=== PATIENT | female | born 1955 | race Caucasian/White ===

== ENCOUNTER → 2016-04-28 | Outpatient (CLI) | payer BC ==
[~2016-04-28] MED LIST: CALC500T72 PO; CALCIUM + D600 M1 PO; CHOL100027 PO; GLUCOSAMINE/CHOND PO; KRIL1CAP7 PO; LEVOCETIRIZINE PO; LISI5TAB3 PO; MULT-506 PO; OXYC-292 PO; XRL10 PO
--- NOTE | 2016-04-29 16:37 | MAMMOGRAPHY REPORT ---
BILATERAL DIGITAL SCREENING MAMMOGRAM TOMOSYNTHESIS WITH CAD: 04/28/2016 CLINICAL HISTORY: Routine screening. Patient has no complaints. TECHNIQUE: Breast tomosynthesis in addition to standard 2D mammography was performed. Current study was also evaluated with a Computer Aided Detection (CAD) system. COMPARISON: Comparison is made to exams dated: 04/27/2015 mammogram, 04/19/2013 mammogram, 11/03/2014 m ammogram, 04/23/2014 mammogram, 04/18/2012 mammogram, and 04/13/2011 mammogram - [facility] enter. BREAST COMPOSITION: There are scattered areas of fibroglandular density in both breasts. FINDINGS: There is a small cluster of calcifications seen within the left upper outer quadrant, for which spot magnification views are recommended for further evaluation. The remainder of both breasts are stable compared to prior exams, without suspicious masses, calcifi cations, or areas of architectural distortion noted. IMPRESSION: ACR BI-RADS CATEGORY 0: INCOMPLETE EVALUATION: NEED ADDITIONAL IMAGING EVALUATION Left upper outer quadrant calcifications, for which additional imaging evaluation is recommended. T he patient will be called to schedule an appointment. Approximately 10% of breast cancers are not detected with mammography. A negative mammographic repor t should not delay biopsy if a clinically suggestive mass is present. Joselyn Carcamo M.D. ah/:04/29/2016 16:07:15 Steersman: Nestor Trevizo RT(R)(M), [facility] letter sent: Addl Imaging 0 BI-RADS Code: ACR BI-RADS Category 0: Incomplete Evaluation: Need Additional Imaging Evaluation
== END | disposition home or self-care (01) ==
LOC: C.MAMM 08:27
PROVIDERS: ATTEND Obstetrics & Gynecology
DX: Z12.31 Encounter for screening mammogram for malignant neoplasm of breast (principal); R92.0 Mammographic microcalcification found on diagnostic imaging of breast

== ENCOUNTER → 2016-05-03 | Outpatient (CLI) | payer BC ==
--- NOTE | 2016-05-03 12:48 | MAMMOGRAPHY REPORT ---
UNILATERAL LEFT DIGITAL DIAGNOSTIC MAMMOGRAM: 05/03/2016 CLINICAL HISTORY: 60-year-old woman called back from screening mammography for a small grouping of p unctate microcalcifications in the upper outer quadrant of the left breast. TECHNIQUE: Spot magnification left CC and ML views were obtained. COMPARISON: Comparison is made to exams dated: 04/27/2015 mammogram, 11/03/2014 ultrasound, 05/01/2014 mammogram, 04/18/2012 mammogram, 04/13/2011 mammogram, and 04/08/2010 mammogram - [facility]. BREAST COMPOSITION: There are scattered areas of fibroglandular density in the left breast. FINDINGS: There is a new small 2 mm grouping of punctate microcalcifications in the upper outer mid dle one third of the left breast. This is indeterminate, warranting further evaluation with a stere otactic guided biopsy. No obvious associated mass or architectural distortion. No other suspicious mass, architectural distortion or cluster of microcalcifications is seen. IMPRESSION: ACR BI-RADS CATEGORY 4B: INTERMEDIATE SUSPICION FOR MALIGNANCY The new small 2 mm grouping of punctate microcalcifications in the left upper outer quadrant is inde terminate, warranting further evaluation with a stereotactic guided biopsy. These results and recommendations were discussed with the patient at the time of the exam. She tent atively scheduled the biopsy prior to leaving our department. Approximately 10% of breast cancers are not detected with mammography. A negative mammographic repor t should not delay biopsy if a clinically suggestive mass is present. Jen Aparicio M.D. ay/:05/03/2016 10:55:17 Clinical Rehab Specialist: Eulalia Feldman, [facility] letter sent: Abnormal 4/5 BI-RADS Code: ACR BI-RADS Category 4B: Intermediate Suspicion For Malignancy
== END | disposition home or self-care (01) ==
LOC: C.MAMM 10:05
PROVIDERS: ATTEND Obstetrics & Gynecology
DX: R92.0 Mammographic microcalcification found on diagnostic imaging of breast (principal)

== ENCOUNTER → 2016-05-09 | Outpatient (CLI) | payer BC ==
--- NOTE | 2016-05-09 13:18 | Discharge Instructions ---
Discharge Instructions Procedure Procedure Date: May 09, 2016. Reason for visit: Left Calcifications. Discharge Discharge Date: May 09, 2016. Discharge Diagnosis: post left breast stereotactic guided biopsy Medications Restart Stopped Medication(s): May restart Aspirin tonight as long as no bleeding through bandages Instructions Activity Recommendations: Additional Limitations (see below) Return to School/Work: no limitations Recommended Home Diet: No Limitations Provider Instructions: ACTIVITY RECOMMENDATIONS: * No lifting, pushing, pulling or exercising the affected side for three days. RETURN TO SCHOOL/WORK: * You may return to work/school after the procedure, but do not perform any strenuous activities for 24 to 48 hours. MEDICATIONS: * Tylenol (two 325 mg) every four to six hours if needed for mild pain (if not allergic to Tylenol). DIET: * Resume previous diet. SPECIAL CARE INSTRUCTIONS: * Keep biopsy site dry for 24 hours. May shower after 24 hours, but do not soak (bathe) incision. * May remove Tegaderm (plastic patch) tomorrow AFTER showering. * Leave the steri-strips on for one week. Allow the steri-strips to fall off by themselves. If not off after one week, you may remove them. You may place a Bandaid crosswise over the strips, if desired. * Apply ice 10 minutes on and 10 minutes off as needed. * Wear a bra at bedtime to sleep more comfortably for 2-3 days. * Your referring physician should have the results after approximately 5 to 7 business days. * Call for unusual bleeding, fever, drainage, etc or if you have any questions call [phone] during normal business hours or after hours call Dr Aparicio, . FOLLOW UP VISIT: Follow-up with Referring Physician as scheduled. Allergies Coded Allergies: Codeine (Verified Allergy, Intermediate, PT TOOK WHEN IN COLLEGE--HANDS SWELLED, 07/15/09) Celecoxib (Unverified Allergy, Unknown, HIVES, 03/26/12) Sulfa Drugs (Unverified Allergy, Unknown, HIVES, 03/26/12) Rachel Robbins Recommendations: Call your doctor if: * Temperature above 101 degrees * Pain not relieved by pain medicine ordered * There is increased drainage or redness from any incision * You have any unanswered questions or concerns. Your Doctors Instructions noted above were prepared by provider Jen Aparicio. Patient Signature Section: Patient Instructions Signature Page Ryder Boothe Patient (or Guardian) Signature/Date: I have read and understand the instructions given to me by my caregivers. Caregiver/RN/Doctor Signature/Date: The above-named patient and/or guardian has received patient instructions on this date. + Original Patient Signature Page (only) stays with chart. Please make copy for patient.
--- NOTE | 2016-05-09 14:28 | MAMMOGRAPHY REPORT ---
STEREOTACTIC GUIDED BIOPSY LEFT BREAST: 05/09/2016 CLINICAL HISTORY: Indeterminate clustered microcalcifications in the lateral left breast. Patient p resents for stereotactic guided biopsy. COMPARISON: Comparison is made to exams dated: 05/03/2016 mammogram, 04/28/2016 mammogram, 04/27/2015 mammogram, and 04/23/2014 mammogram - [facility]. PATIENT CONSENT: After explaining the risks, benefits and alternatives of the procedure to the patie nt, informed consent was obtained both verbally and in writing. Specific risks include: Bleeding, i nfection, puncture of adjacent structure, nontarget biopsy, sampling error, metal allergy and medica tion reaction. PROCEDURE DESCRIPTION: A time-out was performed and the left breast was confirmed as the site of bio psy. The patient was placed prone on the stereotactic biopsy table and the breast was placed in late ralmedial compression. A tape deck installer image was obtained that demonstrated the clustered microcalcificatio ns in question. They are amenable to sterotactic biopsy. Then +15 and -15 stereo pair images were obtained. The calcifications were targeted utilizing the coordinates obtained by the computer. The skin was prepped with Betadine. 1% Lidocaine with and without epinipherine was administered as loca l anesthesia. A small skin incision was made. Through the incision, the needle was inserted to the depth determined by the computer. Through the incision, 8 samples were obtained using a [employer] 9-gauge vacuum-assisted biopsy device. The specimen radiograph demonstrated no microcalcifications, therefore, 6 additional core biopsy samples were obtained in the same area. The second specimen ra diograph demonstrated nearly the entire cluster of calcifications. Then a metallic marker was place d at the biopsy site. There was no immediate complication. Hemostasis was achieved after several min utes of manual compression. The samples were sent to pathology in 2 appropriately labeled container s, as the sample containing nearly the entire cluster of calcifications was out from the r emainder of the tissue and placed in a separate container labeled "with calcifications". Postprocedure CC and ML views of the left breast demonstrate a new dumbbell-shaped metallic biopsy m arker and no significant hematoma in the lateral left breast, at the site of the biopsied calcificat ions in question. IMPRESSION: STEREOTACTIC GUIDED BIOPSY Status post stereotactic guided biopsy of a new cluster of round and punctate microcalcifications in the lateral left breast, with biopsy marker placed at the site. The patient will receive notification of the biopsy results from her referring physician. Jen Aparicio M.D. ay/:05/09/2016 13:33:26 Attending Technologist: Susi Miramontes RT(R)(M), [facility] Sugar Sampler: Coral Avendaño RT(R)(M), [facility]
--- NOTE | 2016-05-09 14:28 | MAMMOGRAPHY REPORT ---
UNILATERAL LEFT DIGITAL DIAGNOSTIC MAMMOGRAM: 05/09/2016 CLINICAL HISTORY: Status post stereotactic biopsy of an indeterminate cluster of round and punctate microcalcifications in the left lateral breast. Please refer to the report from left breast stereotactic biopsy performed at the same time for full detail. IMPRESSION: POST PROCEDURE IMAGING FOR MARKER PLACEMENT Please refer to the report from left breast stereotactic biopsy performed at the same time for full detail. Approximately 10% of breast cancers are not detected with mammography. A negative mammographic repor t should not delay biopsy if a clinically suggestive mass is present. Jen Aparicio M.D. ay/:05/09/2016 13:13:42 Attending Technologist: Susi Miramontes RT(R)(M), [facility] Piping Design Specialist: Coral Avendaño RT(R)(M), [facility] BI-RADS Code: Post Procedure Imaging For Marker Placement
== END | disposition home or self-care (01) ==
LOC: C.MAMM 12:26
PROVIDERS: ATTEND Obstetrics & Gynecology
DX: R92.1 Mammographic calcification found on diagnostic imaging of breast (principal)

== ENCOUNTER → 2016-05-09 | Outpatient (CLI) | payer BC | END | disposition home or self-care (01) | LOC: C.PAPS 14:24 | PROVIDERS: ATTEND Obstetrics & Gynecology | DX: Z01.411 Encounter for gynecological examination (general) (routine) with abnormal findings (principal); N95.2 Postmenopausal atrophic vaginitis ==

== ENCOUNTER → 2017-05-03 | Outpatient (CLI) | payer OTHER ==
--- NOTE | 2017-05-03 14:14 | MAMMOGRAPHY REPORT ---
BILATERAL DIGITAL SCREENING MAMMOGRAM TOMOSYNTHESIS WITH CAD: 05/03/2017 CLINICAL HISTORY: Routine screening. Patient has no complaints. TECHNIQUE: Breast tomosynthesis in addition to standard 2D mammography was performed. Current study was also evaluated with a Computer Aided Detection (CAD) system. COMPARISON: Comparison is made to exams dated: 05/09/2016 mammogram, 05/09/2016 stereotactic biopsy, mammogram, 04/28/2016 mammogram, 04/27/2015 mammogram, and 11/03/2014 mammogram - [facility]. BREAST COMPOSITION: There are scattered areas of fibroglandular density in both breasts. FINDINGS: No suspicious masses, calcifications, or areas of architectural distortion are noted in ei ther breast. There has been no significant interval change compared to prior exams. A biopsy clip is again noted within the left upper outer quadrant. A few scattered bilateral benign-appearing calcif ications are not significantly changed. IMPRESSION: ACR BI-RADS CATEGORY 2: BENIGN There is no mammographic evidence of malignancy. A 1 year screening mammogram is recommended. The pa tient will receive written notification of the results. Approximately 10% of breast cancers are not detected with mammography. A negative mammographic report should not delay biopsy if a clinically suggestive mass is present. Joselyn Carcamo M.D. ah/:05/03/2017 09:41:52 Shift Stacker: Eulalia DWYER(Chai)(M), [facility] letter sent: Normal 1/2 BI-RADS Code: ACR BI-RADS Category 2: Benign
== END | disposition home or self-care (01) ==
LOC: C.MAMM 08:27
PROVIDERS: ATTEND Obstetrics & Gynecology
DX: Z12.31 Encounter for screening mammogram for malignant neoplasm of breast (principal)